=== PATIENT | male | born 1975 | race Caucasian/White ===

== ENCOUNTER 2021-08-10 02:35 | Day surgery (SDC) | payer OTHER, SELFPAY ==
[2021-08-01 13:51] VITALS: BMI 29.7
[2021-08-10 10:10] VITALS: BP 149/112; PULSE 65; RESP 18; TEMP 36.6; O2SAT 98; BMI 29.9
[2021-08-10] MEDS: LACTATED RINGERS 1,000 ML 150 ML IV CONT (10:29)
--- NOTE | 2021-08-10 10:48 | P.CONGI_ITS ---
Assessment and Plan Assessment and plan (1) Encounter for screening colonoscopy: Code(s): Z12.11 - Encounter for screening for malignant neoplasm of colon Status: Acute Assessment and Plan: Patient presents for screening colonoscopy. Appears to be at average risk for colon polyps. Further recommendations will be given after endoscopy. (2) Heartburn: Code(s): R12 - Heartburn Status: Acute Assessment and Plan: Patient complains of substernal burning after over eating. Would red recommend dietary discretion. He may benefit from bland diet. Elevating head of bed at night [id number] antacids is advised p.r.n. initially. GI Consult Note Consult date/time: 08/10/21 10:48 HPI: Flavio Moore is a 46 year old male Presents for GI endoscopy. Patient states that he desires neoplasia screening. His current weight appetite bowel movements are normal. He denies abdominal pain. He has had no bleeding. Family history is noncontributory. Additionally patient complains of intermittent heartburn. He complains of burning in the upper mid chest. Often after over eating. This will resolve spontaneously after a short interval. He denies dysphagia or difficulty swallowing. He has had no bleeding. His weight remains stable. EGD is requested because of chronicity of symptoms by his primary care service. Review of Systems Review of Systems: All systems reviewed & are unremarkable except as noted in HPI and below PMFSH Social History Social History Smoking status: Never smoker Alcohol intake: current Drinks per week: 12 Substance use: never Substance use type: does not use Living arrangements: with family Spiritual care concerns: No Meds Home Medications and Allergies Home Medications Medication Instructions Recorded Confirmed Type lisinopril 5 mg PO DAILY 08/01/21 08/10/21 History Allergies Allergy/AdvReac Type Severity Reaction Status Date / Time No Known Allergies Allergy Verified 08/10/21 10:17 Vital Signs Vital Signs - 24 hr 08/10/21 10:10 Temperature 97.8 F Pulse Rate 65 Respiratory Rate 18 Blood Pressure 149/112 H Pulse Oximetry 98 Exam Narrative: Physical exam reveals patient be alert. Vital signs stable. HEENT exam is unremarkable. Patient is anicteric. Lungs are clear to ausc ultation and percussion. Heart is without murmur or extra sounds. Abdominal exam bowel sounds are present soft nontender with no organomegaly. Digital external rectal exam is normal.
--- NOTE | 2021-08-10 10:49 | P.PNAN_ITS ---
Anes - Initial Pre Proc Eval Procedure: Operation Date: 08/10/21 11:00 Proposed Procedures p Esophagogastroduodenoscopy & Screening Colonoscopy - Mina Borja MD Date/Time: 08/10/21 10:49 Surgeon: Mina Borja MD Pre Op Diagnosis: GERD, neoplasm screening Patient Data Age: 46 Gender: M Height: 1.73 m Weight: 89.4 kg Last Vital Signs Temp 36.6 C 08/10/21 10:10 Pulse 65 08/10/21 10:10 Resp 18 08/10/21 10:10 BP 149/112 H 08/10/21 10:10 Pulse Ox 98 08/10/21 10:10 Allergies Allergy/AdvReac Type Severity Reaction Status Date / Time No Known Allergies Allergy Verified 08/10/21 10:17 Home Medications Medication Instructions Recorded Confirmed Type lisinopril 5 mg PO DAILY 08/01/21 08/10/21 History Patient hx anesthesia problems: none Family hx anesthesia problems: none Results Review: All pre-operative results and documents have been reviewed as part of the pre-operative evaluation. [facility] Social History Social History Smoking status: Never smoker Alcohol intake: current Drinks per week: 12 Substance use: never Substance use type: does not use Living arrangements: with family Spiritual care concerns: No Anes - Eval Final PreProcedure Day of Procedure 08/10/21 10:49 Patient weight: obese Heart: regular rate and rhythm Lungs: clear to auscultation Airway: Mallampati scale class II Neurological: alert and oriented Last oral intake: >/= 8 hours ASA classification: II Emergent: no Anesthetic plan: proceed Anesthesia type and monitoring: general GIVS and standard monitoring Results Review: All pre-operative results and documents have been reviewed as part of the pre-operative evaluation. Informed Consent: The patient's anesthetic plan and its attendant risks and benefits were discussed with the patient/family/POA. Questions were solicited and answers provided to the satisfaction of the patient/family/POA.
[2021-08-10] MEDS: BENZOCAINE (*SP) 60 ML SPRAY CAN (HURRICAINE) 1 SPRAY MUCOUS MEM (11:02)
[2021-08-10 11:29] VITALS: BP 126/85; PULSE 75; RESP 25; O2SAT 97
--- NOTE | 2021-08-10 11:29 | SUR.OPER ---
EGD START 1103, END 1106 COLONOSCOPY START 1112, END 1126
[2021-08-10 11:39] VITALS: BP 130/92; PULSE 66; RESP 16; O2SAT 99
[2021-08-10 11:49] VITALS: BP 128/96; PULSE 64; RESP 14; O2SAT 100
== END 2021-08-10 12:02 | disposition home or self-care (01) ==
PROVIDERS: PCP Internal Medicine; Visit Provider Internal Medicine Gastroenterology
PROC: 0DJ08ZZ Inspection of Upper Intestinal Tract, Via Natural or Artificial Opening Endoscopic (ICD-10-PCS; CPT 43235; principal; 2021-08-10 11:00)
DX: Z12.11 Encounter for screening for malignant neoplasm of colon (principal); K64.8 Other hemorrhoids; K57.30 Diverticulosis of large intestine without perforation or abscess without bleeding; D12.5 Benign neoplasm of sigmoid colon; R12 Heartburn; E66.9 Obesity, unspecified; Z68.30 Body mass index [BMI] 30.0-30.9, adult
CPT/HCPCS: 45385; 43239; 87081; 88305; J2704; J7120